=== PATIENT | female | born 1995 | race Two or more races ===

== ENCOUNTER 2023-11-03 12:44 | Outpatient (CLI) | payer OTHER | END 2023-11-03 12:47 | disposition home or self-care (01) | LOC: PRENATAL 12:44 | PROVIDERS: ATTEND Obstetrics & Gynecology Maternal & Fetal Medicine | DX: O36.80X0 Pregnancy with inconclusive fetal viability, not applicable or unspecified (principal); Z36.82 Encounter for antenatal screening for nuchal translucency; O10.019 Pre-existing essential hypertension complicating pregnancy, unspecified trimester; O99.210 Obesity complicating pregnancy, unspecified trimester; Z3A.12 12 weeks gestation of pregnancy ==

== ENCOUNTER → 2024-01-03 14:13 | Outpatient (CLI) | payer OTHER | END | disposition home or self-care (01) | LOC: PRENATAL 14:13 | PROVIDERS: ATTEND Obstetrics & Gynecology Maternal & Fetal Medicine | DX: O35.9XX0 Maternal care for (suspected) fetal abnormality and damage, unspecified, not applicable or unspecified (principal); O35.3XX0 Maternal care for (suspected) damage to fetus from viral disease in mother, not applicable or unspecified; O44.00 Complete placenta previa NOS or without hemorrhage, unspecified trimester; O99.891 Other specified diseases and conditions complicating pregnancy; O10.019 Pre-existing essential hypertension complicating pregnancy, unspecified trimester; O99.210 Obesity complicating pregnancy, unspecified trimester; Z3A.20 20 weeks gestation of pregnancy ==

== ENCOUNTER 2024-04-10 08:44 | Outpatient (CLI) | payer OTHER | END 2024-04-10 08:45 | disposition home or self-care (01) | LOC: PRENATAL 08:44 | PROVIDERS: ATTEND Obstetrics & Gynecology Maternal & Fetal Medicine | DX: O26.849 Uterine size-date discrepancy, unspecified trimester (principal); O99.891 Other specified diseases and conditions complicating pregnancy; O99.210 Obesity complicating pregnancy, unspecified trimester; Z3A.34 34 weeks gestation of pregnancy ==